=== PATIENT | female | born 1975 ===

== ENCOUNTER 2023-03-06 09:03 | Emergency (ER) | payer BC, OTHER ==
[~2023-03-06] VITALS: Ht 152.4 cm; Wt 50.0 kg
[2023-03-06 10:02] VITALS: PULSE 90; RESP 18; O2SAT 99
[2023-03-06 10:31] LABS: Chloride 105 mmol/L (98-107); Potassium 4.1 mmol/L (3.5-5.1); Sodium 139 mmol/L (136-145)
[2023-03-06 10:32] LABS: Anion Gap 6 (5-15); Carbon Dioxide 28 mmol/L (20-30)
[2023-03-06 10:33] LABS: Calcium 9.4 mg/dL (8.5-10.1)
[2023-03-06 10:33] LABS: Urine Bacteria NONE SEEN /hpf (None Seen); Urine Blood Negative /uL (Negative); Urine Clarity HAZY (Clear); Urine Color Yellow (Yellow); Urine Mucus FEW (None Seen); Urine Protein, UAD TRACE (Negative); Urine Urobilinogen Normal (Negative); Urine WBC 2 /hpf (0 - 5); Urine pH 7.5 (5.0-8.0)
[2023-03-06 10:36] LABS: Amphetamine Screen, Urine Neg (NEGATIVE); Barbiturate Scree,Urine Neg (NEGATIVE); Benzodiazephine Screen, Urine Neg (NEGATIVE); Cannabinoid Screen, Urine Neg (NEGATIVE); Cocaine Screen, Urine Neg (NEGATIVE); Opiate Scree,Urine Neg (NEGATIVE); Phencyclidine Screen, Urine Neg (NEGATIVE)
[2023-03-06 10:37] LABS: BUN/Creatinine Ratio 15.9 (10.0-20.0); Blood Urea Nitrogen 11 mg/dL (9-23); Glucose 106 mg/dL (74-106)
[2023-03-06 10:52] LABS: Basophils # (auto) 0.2 10 ^3/uL (0-0.2); Basophils % (auto) 2.1 % (0.0-2.0); Eosinophils # (auto) 0 10 ^3/uL (0-0.8); Eosinophils % (auto) 0.3 % (0.0-7.0); Hematocrit 45.3 % (36.0-46.0); Hemoglobin 15.3 g/dL (12.2-16.2); Lymphocytes % (auto) 8.7 % (10.0-50.0); Mean Corpuscular Hemoglobin 29.6 pg (28.0-32.0); Mean Corpuscular Hgb Conc. 33.9 g/dL (32.0-36.0); Mean Corpuscular Volume 87.5 fL (80.0-100.0); Monocytes # (auto) 0.5 10 ^3/uL (0-1.3); Monocytes % (auto) 4.7 % (0.0-12.0); Neutrophils # (auto) 9.7 10 ^3/uL (1.6-8.6); Neutrophils % (auto) 84.2 % (37.0-80.0); Red Blood Cells 5.18 10^6/uL (4.0-5.20); Red Cell Distribution Width 12.9 % (11.8-14.3); White Blood Cell 11.5 10^3/uL (4.4-10.8)
[2023-03-06] MEDS ORDERED: IOHEXOL 300 MG/ML 100ML BOTTLE IJ ONE (11:53)
[2023-03-06] MEDS ORDERED: diphenhdrAMINE HCL 50 MG/1 ML VL IV ONE (12:00)
[2023-03-06] MEDS ORDERED: SODIUM CHLORIDE 0.9% 1,000 ML IV ONE (12:00)
[2023-03-06 14:55] VITALS: BP 131/72; PULSE 66; RESP 16; TEMP 98.3; O2SAT 100
[2023-03-06] MEDS ORDERED: ONDANSETRON HCL 4 MG/2 ML VIAL IV ONE (15:15)
== END 2023-03-06 16:22 | disposition short-term general hospital (02) ==
LOC: ER 09:03 → EDBD 09:03 → ER 16:22
DX: C71.9 Malignant neoplasm of brain, unspecified (principal); R55 Syncope and collapse; R42 Dizziness and giddiness; F41.9 Anxiety disorder, unspecified; Z88.0 Allergy status to penicillin
CPT/HCPCS: 36415; 70450; 70460; 80048; 80307; 81001; 84484; 85025; 93005; 96361; 96374; 96375; 99285; J1200; J2405; J7030; Q9967